=== PATIENT | female | born 1975 | race American Indian/Alaskan Native ===

== ENCOUNTER 2016-11-05 09:59 | Outpatient (CLI) | payer OTHER ==
--- NOTE | 2016-11-05 11:43 | Mammography Report ---
Bilateral mammogram: No previous studies available. CAD study utilized. Findings: Predominance adipose tissue bilaterally. Benign calcifications. No mass. Normal axilla. Impression: Benign findings. Annual followup recommended. BI-RADS CATEGORY: 2 = Benign ACR BI-RADS MAMMOGRAPHIC CODES: 0 = Needs additional imaging evaluation; 1 = Negative; 2 = Benign; 3 = Probably benign; 4 = Suspicious; 5 = Malignant; 6 = Known biopsy-proven malignancy COMMENT: 1. Dense breast tissue, i.e., adenosis, fibrocystic changes, etc., may obscure an underlying neoplasm. 2. Approximately 10% of cancers are not detected with mammography. 3. A negative mammography report should not delay biopsy if a clinically suspicious mass is present. COMMENT: Patient follow-up letters are generated in [facility].
== END 2016-11-05 10:00 | disposition home or self-care (01) ==
LOC: MAMMO 09:59
PROVIDERS: ATTEND Obstetrics & Gynecology
DX: Z12.31 Encounter for screening mammogram for malignant neoplasm of breast (principal)
CPT/HCPCS: 77067; G0202

== ENCOUNTER 2017-03-04 14:50 | Inpatient (IN) | payer OTHER ==
[2017-03-04 19:22] LABS: Basophils % (Auto) 0.7 % (0.0-1.8); Hematocrit 38.8 % (30.3-42.9); Hemoglobin 12.8 gm/dl (10.1-14.3); Mean Corpuscular HGB Conc 33 % (30-34); Mean Corpuscular Volume 74 fl (79-97); Platelet Count 294 K/mm3 (140-440); Red Blood Count 5.26 M/mm3 (3.65-5.03)
[2017-03-04 19:25] LABS: Mean Corpuscular Hemoglobin 24 pg (28-32)
[2017-03-04 19:34] LABS: INR 0.87 (0.87-1.13)
[2017-03-04 19:35] LABS: Partial Thromboplastin Time 27.7 Sec. (24.2-36.6)
[2017-03-04 19:40] LABS: Albumin 3.7 g/dL (3.9-5); Albumin/Globulin Ratio 0.8 %; Bilirubin,Total 0.5 mg/dL (0.1-1.2); Calcium 8.9 mg/dL (8.4-10.2); Chloride 98.5 mmol/L (98-107); Potassium 3.6 mmol/L (3.6-5.0); Total Protein 8.3 g/dL (6.3-8.2)
[2017-03-04 20:42] LABS: Bacteria,Urine 1+ /HPF (Negative); Bilirubin,Urine NEG (Negative); Blood,Urine LG (Negative); Ketones,Urine NEG (Negative); Leukocyte Esterase,Urine NEG (Negative); Nitrite,Urine NEG (Negative); Urobilinogen,Urine < 2.0 mg/dL (<2.0)
[2017-03-04] MEDS ORDERED: APRESOLINE IV ONE (21:04)
--- NOTE | 2017-03-04 21:07 | Emergency Department Report ---
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 Guerrier, with the complaint of very elevated blood pressure. The patient does have a history of hypertension and takes hydralazine 50 mg daily and Catapres 0.2 mg daily, as well as some Lasix for history of heart failure. She says she has been compliant with these medications but was found to have a very elevated blood pressure in the office. She was given 0.2 mg of clonidine at the office prior to coming in. Secondarily she also complains of very heavy menstrual cycle/ vaginal bleeding. She says that since June 2014, her menstrual cycle appears to last about 25 days. She denies any abdominal pain, chest pain or shortness of breath, back pain, nausea, vomiting, fever. ED Past Medical Hx - Past Medical History Previous Medical History?: Yes Hx Hypertension: Yes Hx Congestive Heart Failure: Yes Additional medical history: abnormal vaginal bleeding - Surgical History Past Surgical History?: No - Social History Smoking Status: Never Smoker Substance Use Type: Prescribed - Medications Home Medications: Home Medications Medication Instructions Recorded Confirmed Last Taken Type Furosemide [Lasix TAB] 20 mg PO QDAY #30 tablet 02/17/14 03/04/17 03/03/17 Rx Hydralazine HCl 50 mg PO DAILY 03/04/17 03/04/17 03/03/17 History cloNIDine [Catapres] 0.2 mg PO QHS 03/04/17 03/04/17 03/04/17 History ED Review of Systems ROS: Stated complaint: HIGH BLOOD PRESSURE, VAGINAL BLEEDING Other details as noted in HPI Comment: All other systems reviewed and negative Constitutional: denies: chills, fever Eyes: denies: eye pain, eye discharge, vision change ENT: denies: ear pain, throat pain Respiratory: denies: cough, shortness of breath, wheezing Cardiovascular: denies: chest pain, palpitations Gastrointestinal: denies: abdominal pain, nausea, diarrhea Genitourinary: abnormal menses. denies: urgency, dysuria, discharge Musculoskeletal: denies: back pain, joint swelling, arthralgia Skin: denies: rash, lesions Neurological: denies: headache, weakness, paresthesias Physical Exam - Physical Exam Vital Signs: Vital Signs 03/04/17 03/04/17 03/04/17 17:19 18:29 19:00 Temperature 98.8 F 98 F 97.9 F Pulse Rate 91 H 83 76 Respiratory 20 20 15 Rate Blood Pressure 224/142 Blood Pressure 202/127 210/119 [Left] O2 Sat by Pulse 100 100 98 Oximetry 03/04/17 20:45 Temperature Pulse Rate 78 Respiratory 14 Rate Blood Pressure 215/129 Blood Pressure [Left] O2 Sat by Pulse 99 Oximetry Physical Exam: GENERAL: The patient is well-developed well-nourished. HENT: Normocephalic. Atraumatic. Patient has moist mucous membranes. EYES: Extraocular motions are intact. Pupils equal reactive to light bilaterally. NECK: Supple. Trachea is midline. CHEST/LUNGS: Clear to auscultation. There is no respiratory distress noted. HEART/CARDIOVASCULAR: Regular. There is no tachycardia. There is no gallop rub or murmur. ABDOMEN: Abdomen is soft, nontender. Patient has normal bowel sounds. There is no abdominal distention. SKIN: Skin is warm and dry. NEURO: The patient is awake, alert, and oriented. The patient is cooperative. The patient has no focal neurologic deficits. The patient has normal speech and gait. MUSCULOSKELETAL: There is no tenderness or deformity. There is no limitation range of motion. There is no evidence of acute injury. ED Course Vital Signs 03/04/17 03/04/17 03/04/17 17:19 18:29 19:00 Temperature 98.8 F 98 F 97.9 F Pulse Rate 91 H 83 76 Respiratory 20 20 15 Rate Blood Pressure 224/142 Blood Pressure 202/127 210/119 [Left] O2 Sat by Pulse 100 100 98 Oximetry 03/04/17 20:45 Temperature Pulse Rate 78 Respiratory 14 Rate Blood Pressure 215/129 Blood Pressure [Left] O2 Sat by Pulse 99 Oximetry - Consultations Consultation #1: I spoke with Dr. Jorge, [facility] heart cardiology, and she says that the patient was most likely secondary to as they were having trouble controlling the blood pressure in the outpatient setting and therefore she recommends inpatient admission and they're happy to consult. 03/05/17 02:39 ED Medical Decision Making - Lab Data Result diagrams: 03/04/17 18:55 03/04/17 18:55 - EKG Data -: EKG Interpreted by [facility] EKG shows normal: sinus rhythm, axis, intervals (prolonged QT and QTC intervals) , QRS complexes (LVH), ST-T waves (T-wave inversions to the lateral leads) - EKG Data When compared to previous EKG there are: changes noted (T-wave inversions to the lateral leads) Interpretation: other (sinus rhythm, normal axis, normal rate, prolonged QT and QTC intervals, LVH, T-wave inversions to the lateral leads) - Radiology Data Radiology results: report reviewed EXAM: US PELVIS DUPLEX DOPPLER COMP HISTORY: abnormal vaginal bleeding . Irregular cycles. LMP is unknown and has been continuous since the end of January. TECHNIQUE: Ultrasound of the pelvis using transabdominal imaging PRIORS: None. FINDINGS: Uterus: Uterus is enlarged in size and normal and homogeneous in echogenicity without focal fibroid formation. The uterus measures 9.4 x 5.0 x 5.7 cm in size. Endometrial stripe: Abnormal in thickness measuring 19.7 mm. Endometrium is heterogeneous in echogenicity and extends into and through the internal cervical os. Ovaries: Both ovaries appear normal in echogenicity with normal blood flow bilaterally. The right ovary is enlarged in size. The right ovary measures 7.1 x 5.1 x 6.0 cm and the left ovary measures 3.2 x 2.1 x 1.5 cm in size. There is a large anechoic cyst in the right ovary measuring 4.9 x 4.9 x 5.7 cm. Given the size of this finding, this should be followed with ultrasound in 6-12 months. Other: There is no evidence for solid adnexal mass or free fluid in the cul-de-sac seen. IMPRESSION: 1. abnormally thickened heterogeneous endometrium extending into and through the internal cervical os. Findings may be consistent with endometrial hyperplasia or neoplasm. 2. Large cyst in the right ovary. This should be followed with ultrasound 6-12 months. Transcribed By: [facility] Dictated By: MAREK FORD MD Electronically Authenticated By: MAREK FORD MD Signed Date/Time: 03/04/17 980 - Medical Decision Making 41-year-old female sent in by cardiology for hypertensive issues. She received Catapres they are, hydralazine and Vasotec here and she still has some elevated blood pressure. It is asymptomatic hypertensive crisis. Secondarily she complains of heavy vaginal bleeding. The patient is not . Ultrasound was done that shows thickened endometrium that even goes down towards the cervical os that is concerning for endometrial hyperplasia versus malignancy. Also shows a large right-sided ovarian cyst. This all can be followed outpatient with [facility] but the patient will be admitted to the hospital for cardio consultation and blood pressure control. The patient understands and agrees the plan. The patient has been accepted for admission by the hospitalist , Dr. Quesada. - Differential Diagnosis , dysfunctional uterine bleeding, malignancy, hypertensive crisis Critical Care Time: No Critical care attestation.: If time is entered above; I have spent that time in minutes in the direct care of this critically ill patient, excluding procedure time. ED Disposition Clinical Impression: Asymptomatic hypertensive urgency Disposition: OP ADMIT IP TO THIS HOSP Is pt being admited?: Yes Condition: Stable Referrals: PRIMARY CARE, [Primary Care Provider] - 3-5 Days Time of Disposition: 02:48
--- NOTE | 2017-03-04 22:53 | Ultrasound Report ---
FINAL REPORT EXAM: US PELVIS DUPLEX DOPPLER COMP HISTORY: abnormal vaginal bleeding . Irregular cycles. LMP is unknown and has been continuous since the end of January. TECHNIQUE: Ultrasound of the pelvis using transabdominal imaging PRIORS: None. FINDINGS: Uterus: Uterus is enlarged in size and normal and homogeneous in echogenicity without focal fibroid formation. The uterus measures 9.4 x 5.0 x 5.7 cm in size. Endometrial stripe: Abnormal in thickness measuring 19.7 mm. Endometrium is heterogeneous in echogenicity and extends into and through the internal cervical os. Ovaries: Both ovaries appear normal in echogenicity with normal blood flow bilaterally. The right ovary is enlarged in size. The right ovary measures 7.1 x 5.1 x 6.0 cm and the left ovary measures 3.2 x 2.1 x 1.5 cm in size. There is a large anechoic cyst in the right ovary measuring 4.9 x 4.9 x 5.7 cm. Given the size of this finding, this should be followed with ultrasound in 6-12 months. Other: There is no evidence for solid adnexal mass or free fluid in the cul-de-sac seen. IMPRESSION: 1. abnormally thickened heterogeneous endometrium extending into and through the internal cervical os. Findings may be consistent with endometrial hyperplasia or neoplasm. 2. Large cyst in the right ovary. This should be followed with ultrasound 6-12 months.
[2017-03-04] MEDS ORDERED: VASOTEC IV ONE (23:50)
[2017-03-05] MEDS ORDERED: MILK OF MAGNESIA PO PRN (03:42)
[2017-03-05] MEDS ORDERED: ZOFRAN IV PRN (03:42)
[2017-03-05] MEDS ORDERED: DULCOLAX PR PRN (03:42)
[2017-03-05] MEDS ORDERED: TYLENOL PO PRN (03:42)
[2017-03-05] MEDS ORDERED: PERCOCET 5/325 PO PRN (03:42)
--- NOTE | 2017-03-05 04:37 | History and Physical Report ---
History of Present Illness Date of examination: 03/05/17 Date of admission: 03/05/17 03:42 History of present illness: 41-year-old woman history of hypertension, very difficult to control, CHF was sent to the emergency room by business services specialist sales because her blood pressure was extremely high, systolic greater than 220. She had an appointment with her business services specialist sales to check on the stress test results today. Patient stated that her medications have been changed several times, she takes her clonidine and her other antihypertensive at night so she could function during the day. She does not check her blood pressure in the morning. This is her fifth hospitalization for uncontrolled hypertension. Admit the menstrual irregularities Review Of Systems: Constitutional: no weight loss Ears, eyes, nose, mouth and throat: no nasal congestion, no nasal discharge, no sinus pressure, blurry vision, diplopia Neck: No neck pain or rigidity. Cardiovascular: chest pain, orthopnea, palpitations Respiratory: No shortness of breath, cough Gastrointestinal: abdominal pain, hematochezia Genitourinary : no dysuria, frequency , hematuria Musculoskeletal: no muscle ache Integumentary: no rash, no pruritis Neurological: no parathesias, focal weakness Endocrine: no cold or heat intolerance, no polyuria or polydipsia Hematologic/Lymphatic: no easy bruising, no easy bleeding, no gland swelling Allergic/Immunologic: no urticaria, no angioedema. PAST MEDICAL HISTORY: Hypertension, CHF PAST SURGICAL HISTORY: None FAILY HISTORY: Hypertension SOCIAL HISTORY:Denies alcohol, tobacco, drugs Medications and Allergies Allergies Allergy/AdvReac Type Severity Reaction Status Date / Time carvedilol Allergy Seizure Unverified 11/05/16 10:00 nitroglycerin Allergy Headache Unverified 11/05/16 09:59 Home Medications Medication Instructions Recorded Confirmed Last Taken Type Furosemide [Lasix TAB] 20 mg PO QDAY #30 tablet 02/17/14 03/04/17 03/03/17 Rx Hydralazine HCl 50 mg PO DAILY 03/04/17 03/04/17 03/03/17 History cloNIDine [Catapres] 0.2 mg PO QHS 03/04/17 03/04/17 03/04/17 History Active Meds: Active Medications Acetaminophen (Tylenol) 650 mg PO Q4H PRN PRN Reason: Pain MILD(1-3)/Fever >100.5/MONTANEZ Bisacodyl (Dulcolax) 10 mg [place] QDAY PRN PRN Reason: Constipation unrelieved by MOM Enoxaparin Sodium (Lovenox) 40 mg SUB-Q QDAY@1000 CJ Magnesium Hydroxide (Milk Of Magnesia) 30 ml PO Q4H PRN PRN Reason: Constipation Ondansetron HCl (Zofran) 4 mg IV Q8H PRN PRN Reason: N/V unrelieved by Reglan Oxycodone/Acetaminophen (Percocet 5/325) 1 tab PO Q6H PRN PRN Reason: Pain, Moderate (4-6) Exam - Physical Exam Narrative exam: Gen. appearance: Patient lying in bed in no acute distress HEENT: Normocephalic/atraumatic, pupils equal round reactive to light, extra alkaline movement intact, no scleral icterus, no JVD or thyromegaly or nodule, neck is supple, mucous membrane moist, no erythema or exudate Heart: S1-S2, regular rate and rhythm Lungs: Clear to auscultation bilateral breathing comfortable Abdomen: Positive bowel sounds, nontender, nondistended, no organomegaly Extremities: No edema, cyanosis, clubbing Neuro:: Oriented 3 , cranial nerves II-12 intact, speech, motor intact Skin: No rash, nodules, warm dry - Constitutional Vitals: Temp Pulse Resp BP Pulse Ox 97.9 F 83 15 171/105 95 03/04/17 19:00 03/05/17 03:00 03/05/17 03:00 03/05/17 03:00 03/05/17 03:00 Results - Labs CBC & Chem 7: 03/04/17 18:55 03/04/17 18:55 - Imaging and Cardiology EKG: image reviewed Assessment and Plan Abdominal and transvaginal ultrasound reviewed Assessment Hypertensive urgency, ligament CHF, stable Dysfunctional uterine bleed Plan Admit to medicine Continue appropriate outpatient medications, consult cardiology DVT prophylaxis
[2017-03-05] MEDS ORDERED: APRESOLINE IV ONE ×2 (06:15→06:30)
--- NOTE | 2017-03-05 07:35 | Ultrasound Report ---
FINAL REPORT EXAM: US TRANSVAGINAL HISTORY: abnormal vaginal bleeding TECHNIQUE: Transvaginal imaging was obtained the pelvis including Doppler interrogation of the ovaries. FINDINGS: The uterus is anteverted measuring 9.4 cm x 5 cm x 5.7 cm. The endometrium is thickened measuring 19.7 millimeters. The echotexture of the endometrium is slightly heterogeneous extending into the cervix. Free fluid is not seen. The left ovary is normal size contour and echotexture measuring 3.2 cm x 2.1 cm x 1.5 cm. The right ovary is enlarged measuring 7.1 cm x 5.1 cm x 6 cm. There are 3 cysts in the right ovary the largest measuring up to 6.7 cm in diameter. The other 2 cysts measure up to 1.9 cm and up to 2.5 cm in diameter. IMPRESSION: Abnormally thickened heterogeneous endometrium as described. Underlying endometrial hyperplasia or neoplasm cannot be excluded. Cystic changes in the right ovary the largest measuring up to 6.7 cm in diameter. Follow-up exam recommended
[2017-03-05] MEDS ORDERED: APRESOLINE PO SCH ×2 (09:00→10:00)
[2017-03-05] MEDS ORDERED: LASIX PO SCH (10:00)
[2017-03-05] MEDS: LOVENOX SUB-Q SCH (10:44)
--- NOTE | 2017-03-05 11:54 | Consultation ---
History of Present Illness Consult date: 03/05/17 Requesting physician: STEPHEN HAGER Consult reason: hypertension History of present illness: She was diagnosed with hypertension in 2013. She claims that her blood pressure has been uncontrolled for the past [address] Jay yesterday to review her recent stress test and echo performed at the office and was noted to have severely elevated BP. She was then sent to the hospital for further management. She denies headache, nausea, vomiting, dyspnea or dizziness. She claims that when she takes hydralazine, she experiences chest discomfort. She also mentioned that for the past 2 weeks, she has been experiencing excessive uterine bleeding. Transvaginal ultrasound raised a question of possible endometrial hyperplasia. Stress test with nuclear imaging was negative for ischemia on 02/25/2017. Echocardiogram revealed mild to moderate LVH with an ejection fraction of 50%. There is grade 1 diastolic LV dysfunction. Past History Past Medical History: hypertension Past Surgical History: No surgical history Social history: . denies: smoking, alcohol abuse Family history: no significant family history Medications and Allergies Allergies Allergy/AdvReac Type Severity Reaction Status Date / Time carvedilol Allergy Seizure Unverified 11/05/16 10:00 nitroglycerin Allergy Headache Unverified 11/05/16 09:59 Home Medications Medication Instructions Recorded Confirmed Last Taken Type Furosemide [Lasix TAB] 20 mg PO QDAY #30 tablet 02/17/14 03/04/17 03/03/17 Rx Hydralazine HCl 50 mg PO DAILY 03/04/17 03/04/17 03/03/17 History cloNIDine [Catapres] 0.2 mg PO QHS 03/04/17 03/04/17 03/04/17 History Active Meds: Active Medications Acetaminophen (Tylenol) 650 mg PO Q4H PRN PRN Reason: Pain MILD(1-3)/Fever >100.5/MONTANEZ Bisacodyl (Dulcolax) 10 mg [place] QDAY PRN PRN Reason: Constipation unrelieved by MOM Clonidine HCl (Catapres) 0.2 mg PO QHS CJ Enoxaparin Sodium (Lovenox) 40 mg SUB-Q QDAY@1000 CJ Last Admin: 03/05/17 10:44 Dose: Not Given Furosemide (Lasix) 20 mg PO QDAY [facility] Last Admin: 03/05/17 10:42 Dose: 20 mg Hydralazine HCl (Apresoline) 100 mg PO TID CJ Last Admin: 03/05/17 10:40 Dose: 100 mg Magnesium Hydroxide (Milk Of Magnesia) 30 ml PO Q4H PRN PRN Reason: Constipation Ondansetron HCl (Zofran) 4 mg IV Q8H PRN PRN Reason: N/V unrelieved by Reglan Oxycodone/Acetaminophen (Percocet 5/325) 1 tab PO Q6H PRN PRN Reason: Pain, Moderate (4-6) Review of Systems Constitutional: no fever, no chills Ears, nose, mouth and throat: no ear pain, no ear discharge, no sore throat Cardiovascular: no chest pain, no palpitations, no lightheadedness, no shortness of breath Respiratory: no cough, no hemoptysis, no shortness of breath, no dyspnea on exertion Gastrointestinal: no abdominal pain, no nausea, no vomiting, no diarrhea, no constipation Genitourinary Female: menorrhagia, no dysuria, no urinary frequency Rectal: no pain, no bleeding Musculoskeletal: no neck stiffness, no neck pain, no myalgias Integumentary: no rash, no pruritis Neurological: no weakness, no parathesias, no headaches Endocrine: no cold intolerance, no heat intolerance Hematologic/Lymphatic: no easy bruising, no easy bleeding Allergic/Immunologic: no urticaria, no wheezing Physical Examination Vital Signs Vital Signs 03/05/17 03/05/17 03/05/17 04:11 04:30 04:41 Temperature Pulse Rate 86 81 86 Respiratory 15 12 13 Rate Blood Pressure 172/99 178/108 178/108 O2 Sat by Pulse 99 99 99 Oximetry 03/05/17 03/05/17 03/05/17 04:51 05:00 05:48 Temperature 97.8 F Pulse Rate 89 89 85 Respiratory 13 13 20 Rate Blood Pressure 178/108 178/119 193/116 O2 Sat by Pulse 98 99 98 Oximetry 03/05/17 03/05/17 03/05/17 07:30 08:38 08:51 Temperature 98.6 F Pulse Rate 92 H 92 H Respiratory 20 Rate Blood Pressure 188/100 149/92 O2 Sat by Pulse 98 99 Oximetry 03/05/17 10:40 Temperature Pulse Rate 96 H Respiratory Rate Blood Pressure 149/92 O2 Sat by Pulse Oximetry General appearance: no acute distress HEENT: Positive: EOMI, Normocephaly, Mucus Membranes Moist Neck: Positive: neck supple, trachea midline Cardiac: Positive: Reg Rate and Rhythm, S1/S2 Lungs: Positive: clear to auscultation Neuro: Positive: Grossly Intact Abdomen: Positive: Soft, Active Bowel Sounds. Negative: Tender Musculoskeletal: Normal Range of Motion Extremities: Present: normal. Absent: edema Results 03/04/17 18:55 03/04/17 18:55 - Imaging and Cardiology EKG: image reviewed EKG interpretations - Telemetry EKG Rhythm: Sinus Rhythm - EKG Sinus rhythms and dysrhythmias: sinus rhythm Chamber hypertrophy or enlargement: left ventricular hypertro Repolarization changes or abnormalities: repolarization abn secondary to ventricular hypertrophy Assessment and Plan I will optimize her antihypertensive regimen. - Patient Problems (1) Accelerated hypertension Current Visit: No Status: Acute (2) Hypertensive heart disease Current Visit: Yes Status: Chronic Qualifiers: Heart failure presence: without heart failure Qualified Code(s): I11.9 - Hypertensive heart disease without heart failure (3) Chronic kidney disease (CKD) Current Visit: Yes Status: Chronic Qualifiers: Chronic kidney disease stage: stage 2 (mild) Qualified Code(s): N18.2 - Chronic kidney disease, stage 2 (mild) (4) Menorrhagia Current Visit: Yes Status: Acute Qualifiers: Menorrahagia type: M
[2017-03-05] MEDS: NORVASC PO SCH (13:02)
[2017-03-05] MEDS: LOPRESSOR PO SCH ×2 (13:16→22:17)
[2017-03-05] MEDS: DIOVAN PO SCH (13:18)
--- NOTE | 2017-03-05 17:05 | Progress Note ---
Assessment and Plan Assessment and plan: Hypertensive emergency - Patient's systolic blood pressure on admission was 220 with ANSELMO - Patient started with the pressure medications, and currently controlled - Patient said she is allergic to most of the blood pressure medications ANSELMO - Control blood pressure and monitor CHF, chronic diastolic - Stable, continue the Lasix - Ejection fraction was 30-35% on her previous echo but per cardiology her recent ejection fraction is 50-55% with diastolic dysfunction DVT prophylaxis - On heparin Disposition - Will be discharged tomorrow if blood pressure is controlled History Interval history: Patient was seen and evaluated this morning, no chest pain or shortness of breath, patient has menometrorrhagia Hospitalist Physical - Physical exam Narrative exam: Not in cardiopulmonary distress. The patient appeared well nourished and normally developed. Vital signs as documented. Head exam is unremarkable. No scleral icterus . Neck is without jugular venous distension, thyromegaly, or carotid bruits. Lungs are clear to auscultation. Cardiac exam reveals regular rate and Rhythm. First and second heart sounds normal. No murmurs, rubs or gallops. Abdominal exam reveals normal bowel sounds, no masses, no organomegaly and no aortic enlargement. Extremities are nonedematous and both femoral and pedal pulses are normal. EDGE BANDER HAND: Alert and oriented 3. No focal weakness. - Constitutional Vitals: Temp Pulse Resp BP Pulse Ox 98.2 F 74 20 151/93 99 03/05/17 15:46 03/05/17 15:46 03/05/17 15:46 03/05/17 15:46 03/05/17 15:46 General appearance: Present: no acute distress Results - Labs CBC & Chem 7: 03/04/17 18:55 03/04/17 18:55 Labs: Laboratory Last Values WBC 10.0 K/mm3 (4.5-11.0) 03/04/17 18:55 RBC 5.26 M/mm3 (3.65-5.03) H 03/04/17 18:55 Hgb 12.8 gm/dl (10.1-14.3) 03/04/17 18:55 Hct 38.8 % (30.3-42.9) 03/04/17 18:55 MCV 74 fl (79-97) L 03/04/17 18:55 MCH 24 pg (28-32) L 03/04/17 18:55 MCHC 33 % (30-34) 03/04/17 18:55 RDW 19.0 % (13.2-15.2) H 03/04/17 18:55 Plt Count 294 K/mm3 (140-440) 03/04/17 18:55 Lymph % (Auto) 16.6 % (13.4-35.0) 03/04/17 18:55 [place] % (Auto) 7.0 % (0.0-7.3) 03/04/17 18:55 Eos % (Auto) 2.0 % (0.0-4.3) 03/04/17 18:55 Baso % (Auto) 0.7 % (0.0-1.8) 03/04/17 18:55 Lymph # 1.7 K/mm3 (1.2-5.4) 03/04/17 18:55 [place] # 0.7 K/mm3 (0.0-0.8) 03/04/17 18:55 Eos # 0.2 K/mm3 (0.0-0.4) 03/04/17 18:55 Baso # 0.1 K/mm3 (0.0-0.1) 03/04/17 18:55 Seg Neutrophils % 73.7 % (40.0-70.0) H 03/04/17 18:55 Seg Neutrophils # 7.4 K/mm3 (1.8-7.7) 03/04/17 18:55 PT 12.3 Sec. (12.2-14.9) 03/04/17 18:55 INR 0.87 (0.87-1.13) 03/04/17 18:55 APTT 27.7 Sec. (24.2-36.6) 03/04/17 18:55 Sodium 137 mmol/L (137-145) 03/04/17 18:55 Potassium 3.6 mmol/L (3.6-5.0) 03/04/17 18:55 Chloride 98.5 mmol/L (98-107) 03/04/17 18:55 Carbon Dioxide 23 mmol/L (22-30) 03/04/17 18:55 Anion Gap 19 mmol/L 03/04/17 18:55 BUN 14 mg/dL (7-17) 03/04/17 18:55 Creatinine 1.5 mg/dL (0.7-1.2) H 03/04/17 18:55 Estimated GFR 46 ml/min 03/04/17 18:55 BUN/Creatinine Ratio 9 % 03/04/17 18:55 Glucose 71 mg/dL (65-100) 03/04/17 18:55 Hemoglobin A1c 5.3 % (4-6) 03/04/17 14:30 Calcium 8.9 mg/dL (8.4-10.2) 03/04/17 18:55 Total Bilirubin 0.50 mg/dL (0.1-1.2) 03/04/17 18:55 AST 16 units/L (5-40) 03/04/17 18:55 ALT 12 units/L (7-56) 03/04/17 18:55 Alkaline Phosphatase 104 units/L (35-129) 03/04/17 18:55 Total Protein 8.3 g/dL (6.3-8.2) H 03/04/17 18:55 Albumin 3.7 g/dL (3.9-5) L 03/04/17 18:55 Albumin/Globulin Ratio 0.8 % 03/04/17 18:55 HCG, Quant < 2 mIU/mL (0-4) 03/04/17 18:55 Urine Color Yellow (Yellow) 03/04/17 20:32 Urine Turbidity Clear (Clear) 03/04/17 20:32 Urine pH 6.0 (5.0-7.0) 03/04/17 20:32 Ur Specific [place] 1.008 (1.003-1.030) 03/04/17 20:32 Urine Protein 30 mg/dl mg/dL (Negative) 03/04/17 20:32 Urine Glucose (UA) Neg mg/dL (Negative) 03/04/17 20:32 Urine Ketones Neg mg/dL (Negative) 03/04/17 20:32 Urine Blood Lg (Negative) 03/04/17 20:32 Urine Nitrite Neg (Negative) 03/04/17 20:32 Urine Bilirubin Neg (Negative) 03/04/17 20:32 Urine Urobilinogen < 2.0 mg/dL (<2.0) 03/04/17 20:32 Ur Leukocyte Esterase Neg (Negative) 03/04/17 20:32 Urine WBC (Auto) 2.0 /HPF (0.0-6.0) 03/04/17 20:32 Urine RBC (Auto) 148.0 /HPF (0.0-6.0) 03/04/17 20:32 U Epithel Cells (Auto) < 1.0 /HPF (0-13.0) 03/04/17 20:32 Urine Bacteria (Auto) 1+ /HPF (Negative) 03/04/17 20:32 Blood Type O POSITIVE 03/04/17 19:00 Antibody Screen Negative 03/04/17 19:00
[2017-03-05] MEDS ORDERED: CATAPRES PO SCH (22:00)
[2017-03-06 10:18] LABS: Basophils % (Auto) 0.9 % (0.0-1.8); Eosinophils % (Auto) 1.8 % (0.0-4.3); Hematocrit 33.3 % (30.3-42.9); Hemoglobin 10.7 gm/dl (10.1-14.3); Mean Corpuscular HGB Conc 32 % (30-34); Mean Corpuscular Volume 74 fl (79-97); Platelet Count 311 K/mm3 (140-440); Red Blood Count 4.49 M/mm3 (3.65-5.03); Red Cell Distribution Width 18.8 % (13.2-15.2); White Blood Count 9.7 K/mm3 (4.5-11.0)
[2017-03-06 10:24] LABS: Mean Corpuscular Hemoglobin 24 pg (28-32)
[2017-03-06 10:25] LABS: Calcium 8.4 mg/dL (8.4-10.2); Chloride 102.7 mmol/L (98-107); Potassium 4.2 mmol/L (3.6-5.0)
--- NOTE | 2017-03-06 10:31 | Discharge Summary ---
Providers - Providers Date of Admission: 03/05/17 03:42 Date of discharge: 03/06/17 Attending physician: MARY GUARDADO MD Primary care physician: SALES FORCE ADMINISTRATOR Hospitalization Reason for admission: Hypertensive urgency Condition: Stable Hospital course: 41-year-old woman history of hypertension, very difficult to control, CHF was sent to the emergency room by project manager retail because her blood pressure was extremely high, systolic greater than 220. She had an appointment with her project manager retail to check on the stress test results today. Patient stated that her medications have been changed several times, she takes her clonidine and her other antihypertensive at night so she could function during the day. She does not check her blood pressure in the morning. This is her fifth hospitalization for uncontrolled hypertension. Admit the menstrual irregularities. Patient was admitted to the floor with the impression of hypertensive urgency and we tried to manage her blood pressure the patient is difficult to manage. She mentioned side effects to all the common medications I mentioned and refused to take the medications. I have consulted cardiology and she was also mentioning the different side effects to different medications and they modify her medications and advised to discharge her. Her blood pressure was high at the time of discharge but the patient was not willing to take any medications. Patient said her BP is high when she is in period and asked me if that is the case and I told her to follow with he FAILURE ANALYSIS TECHNICIAN and don't believe it is related to her menses. Patient was alert and oriented and looks rational reasoning and don't believe needs psych evaluation on this admission. Per the H/ P she has been admitted 5 times for the same problem. If the patient is refusing all kinds of BP medications I didn't see the rationale of admitting this patient. I gave a script the medications recommended by cardiology and not sure if she is going to fill the scripts. patient didn't have any symptoms other than the high blood pressure. Patient is known to [facility]. Disposition: DC-01 TO HOME OR SELFCARE Time spent for discharge: 31 minutes - Discharge Diagnoses (1) Asymptomatic hypertensive urgency Status: Acute (2) Menorrhagia Status: Acute Qualifiers: Menorrahagia type: M (3) Chronic kidney disease (CKD) Status: Chronic Qualifiers: Chronic kidney disease stage: stage 2 (mild) Qualified Code(s): N18.2 - Chronic kidney disease, stage 2 (mild) (4) CHF (congestive heart failure) Status: Acute Qualifiers: Congestive heart failure type: C Congestive heart failure chronicity: C Core Measure Documentation - Palliative Care Palliative Care/ Comfort Measures: Not Applicable - Core Measures Any of the following diagnoses?: none Exam - Physical Exam Narrative exam: Not in cardiopulmonary distress. The patient appeared well nourished and normally developed. Vital signs as documented. Head exam is unremarkable. No scleral icterus . Neck is without jugular venous distension, thyromegaly, or carotid bruits. Lungs are clear to auscultation. Cardiac exam reveals regular rate and Rhythm. First and second heart sounds normal. No murmurs, rubs or gallops. Abdominal exam reveals normal bowel sounds, no masses, no organomegaly and no aortic enlargement. Extremities are nonedematous and both femoral and pedal pulses are normal. INSULATION FOREMAN: Alert and oriented 3. No focal weakness. - Constitutional Vitals: Temp Pulse Resp BP Pulse Ox 98.7 F 68 18 180/99 97 03/06/17 08:27 03/06/17 08:27 03/06/17 08:27 03/06/17 08:27 03/06/17 08:27 Plan Activity: no restrictions Weight Bearing Status: Full Weight Bearing Diet: low cholesterol, low salt Follow up with: PRIMARY CARE, [Primary Care Provider] - 3-5 Days Prescriptions: cloNIDine [Catapres] 0.2 mg PO QHS #30 tablet Furosemide [Lasix TAB] 20 mg PO QDAY #30 tablet Hydralazine HCl 50 mg PO DAILY #30 tablet Metoprolol [Lopressor TAB] 50 mg PO BID #60 tablet Valsartan [Diovan] 320 mg PO QDAY #30 tablet
[2017-03-06] MEDS: DIOVAN PO SCH (10:34)
[2017-03-06] MEDS: LOPRESSOR PO SCH (10:36)
[2017-03-06] MEDS: LOVENOX SUB-Q SCH (10:37)
[2017-03-06] MEDS: NORVASC PO SCH (10:38)
--- NOTE | 2017-03-06 11:25 | Progress Note ---
Assessment and Plan Cont with lopressor and valsartan. Currently stable cardiac status. Pt may discharge home from cardiology standpoint. Follow up in our office with Dr. Castañeda within 1 week of hospital discharge ). The patient has been seen in conjunction with Dr. Dacosta who agrees with the assessment and plan of care. - Patient Problems (1) Accelerated hypertension Current Visit: No Status: Acute (2) Hypertensive heart disease Current Visit: Yes Status: Chronic Qualifiers: Heart failure presence: without heart failure Qualified Code(s): I11.9 - Hypertensive heart disease without heart failure (3) Chronic kidney disease (CKD) Current Visit: Yes Status: Chronic Qualifiers: Chronic kidney disease stage: stage 2 (mild) Qualified Code(s): N18.2 - Chronic kidney disease, stage 2 (mild) (4) Menorrhagia Current Visit: Yes Status: Acute Qualifiers: Menorrahagia type: M Subjective Date of service: 03/06/17 Principal diagnosis: accelerated HTN Interval history: pt sitting comfortably at bedside, states she is feeling better. BPs remain labile. Pt refused amlodipine and valsartan overnight d/t reported history of allergic reaction to amlodipine and losartan. However, following discussion regarding anti-hypertensive medications, she is agreeable to try valsartan now. Objective Last Vital Signs Temp 98.7 F 03/06/17 08:27 Pulse 68 03/06/17 10:36 Resp 18 03/06/17 08:27 BP 180/99 03/06/17 10:36 Pulse Ox 96 03/06/17 10:00 - Physical Examination General: Appears Well HEENT: Positive: EOMI, Normocephaly, Mucus Membranes Moist Neck: Positive: neck supple, trachea midline Cardiac: Positive: Reg Rate and Rhythm, S1/S2 Lungs: Positive: clear to auscultation Neuro: Positive: Grossly Intact Abdomen: Positive: Soft, Active Bowel Sounds. Negative: Tender Musculoskeletal: Normal Range of Motion Extremities: Present: normal. Absent: edema - Labs and Meds CBC 03/06/17 Range/Units 09:48 WBC 9.7 (4.5-11.0) K/mm3 RBC 4.49 (3.65-5.03) M/mm3 Hgb 10.7 (10.1-14.3) gm/dl Hct 33.3 (30.3-42.9) % Plt Count 311 (140-440) K/mm3 Lymph # 1.4 (1.2-5.4) K/mm3 [place] # 0.7 (0.0-0.8) K/mm3 Eos # 0.2 (0.0-0.4) K/mm3 Baso # 0.1 (0.0-0.1) K/mm3 Comprehensive Metabolic Panel 03/06/17 Range/Units 09:48 Sodium 138 (137-145) mmol/L Potassium 4.2 (3.6-5.0) mmol/L Chloride 102.7 (98-107) mmol/L Carbon Dioxide 22 (22-30) mmol/L BUN 15 (7-17) mg/dL Creatinine 1.7 H (0.7-1.2) mg/dL Glucose 90 (65-100) mg/dL Calcium 8.4 (8.4-10.2) mg/dL - Imaging and Cardiology EKG: image reviewed - Telemetry EKG Rhythm: Sinus Rhythm - EKG Sinus rhythms and dysrhythmias: sinus rhythm Chamber hypertrophy or enlargement: left ventricular hypertro Repolarization changes or abnormalities: repolarization abn secondary to ventricular hypertrophy
--- NOTE | 2017-03-06 15:15 | Query- Renal Failure ---
Ori Meneses__Jolly Date:__03/06/2017 Specialties Operator/CDS:___Lynn Phone#:__[phone] Exercise your independent professional judgment when responding to query. Questions asked do not imply a particular answer is desired or expected. We greatly appreciate your clarification on this issue. Clinical Documentation States: 41 Year old female was admitted on 03/04/2017 because her blood pressure was extremely high, systolic greater than 220. The Hospitalist progress note on 03/05/2017 states "ANSELMO - Control blood pressure and monitor." Clinical Findings Show: 03/04 03/06 Creatinine 1.5 1.7 Please clarify if you mean: Acute Renal Failure with or due to: [ ] Tubular Necrosis [ ] Medullary Necrosis [ x] Vasomotor Nephropathy [ ] Shock Kidney [ ] Tubular Nephrosis [ ] Renal Tubular Stasis [ ] Cortical Necrosis [ ] Acute Renal Failure (unspecified) [ ] Lower Tubular Nephrosis [ ] Other: [ ] Not Applicable Present on Admission: [ x] Yes (Y) [ ] Clinically undeterminable (W) [ ] No (N) Please also document response in your Progress Notes and/or Discharge Summary and indicate if the condition was present on admission. MTDD
[2017-03-06 16:49] VITALS: BP 213/120
[2017-03-06] MEDS ORDERED: APRESOLINE IV ONE (17:08)
[2017-03-06] MEDS ORDERED: APRESOLINE PO ONE (17:46)
== END 2017-03-06 19:00 | disposition home or self-care (01) | DRG 304 ==
LOC: ED 14:50 → 3A 03-05 03:42
PROVIDERS: ADMIT Internal Medicine; ATTEND Internal Medicine
DX: I16.0 Hypertensive urgency (principal); N17.0 Acute kidney failure with tubular necrosis; I50.32 Chronic diastolic (congestive) heart failure; N93.8 Other specified abnormal uterine and vaginal bleeding; N85.00 Endometrial hyperplasia, unspecified; I13.0 Hypertensive heart and chronic kidney disease with heart failure and stage 1 through stage 4 chronic kidney disease, or unspecified chronic kidney disease; N18.9 Chronic kidney disease, unspecified; Z82.49 Family history of ischemic heart disease and other diseases of the circulatory system; Z88.8 Allergy status to other drugs, medicaments and biological substances
CPT/HCPCS: 36415; 76830; 80048; 80053; 81001; 83036; 84702; 85025; 85610; 85730; 86850; 86900; 86901; 93005; 93010; 93975; 96374; 96375; 99285; J0360; J1650; J2405

== ENCOUNTER 2017-11-25 14:57 | Emergency (ER) | payer OTHER ==
[2017-11-25 15:06] VITALS: BP 214/147
== END 2017-11-25 18:00 | disposition left against medical advice (07) ==
LOC: ED 14:57
DX: I10 Essential (primary) hypertension (principal); Z53.21 Procedure and treatment not carried out due to patient leaving prior to being seen by health care provider

== ENCOUNTER 2020-07-11 10:48 | Outpatient (CLI) | payer MEDICARE | END 2020-07-11 10:49 | disposition home or self-care (01) | LOC: ECHO 10:48 | PROVIDERS: ATTEND Internal Medicine | DX: I08.1 Rheumatic disorders of both mitral and tricuspid valves (principal); I42.0 Dilated cardiomyopathy; I50.9 Heart failure, unspecified; N18.6 End stage renal disease; I10 Essential (primary) hypertension; I27.20 Pulmonary hypertension, unspecified | CPT/HCPCS: 93306 ==

== ENCOUNTER 2020-08-15 06:26 | Day surgery (SDC) | payer MEDICARE ==
[2020-08-15] MEDS ORDERED: ASPIRIN EC 325 MG TAB PO ONE (07:01)
[2020-08-15 07:47] LABS: Basophils # (Auto) 0.1 K/mm3 (0.0-0.1); Basophils % (Auto) 0.9 % (0.0-1.8); Eosinophils # (Auto) 0.3 K/mm3 (0.0-0.4); Eosinophils % (Auto) 3.3 % (0.0-4.3); Hematocrit 33.9 % (30.3-42.9); Hemoglobin 11.3 gm/dl (10.1-14.3); Lymphocytes # (Auto) 1.5 K/mm3 (1.2-5.4); Lymphocytes % (Auto) 16.2 % (13.4-35.0); Mean Corpuscular HGB Conc 33 % (30-34); Mean Corpuscular Volume 89 fl (79-97); Monocytes # (Auto) 0.6 K/mm3 (0.0-0.8); Platelet Count 229 K/mm3 (140-440); Red Blood Count 3.82 M/mm3 (3.65-5.03); Red Cell Distribution Width 16.5 % (13.2-15.2)
[2020-08-15 07:54] LABS: INR 0.9 (0.87-1.13)
[2020-08-15 07:55] LABS: Partial Thromboplastin Time 23.2 Sec. (24.2-36.6)
[2020-08-15 07:56] LABS: Calcium 9.3 mg/dL (8.4-10.2)
[2020-08-15] MEDS ORDERED: SODIUM CHLORIDE 0.9% 500 ML 500 ML IV SCH (08:00)
[2020-08-15] MEDS ORDERED: HEPARIN/NS 5000 UNIT/500ML 1,000 ML IR ONE (08:15)
[2020-08-15] MEDS ORDERED: NITROGLYCERIN SYRINGE 3 ML ONE (08:16)
[2020-08-15] MEDS: LIDOCAINE (2%) 20 MG/1 ML VIAL 20 ML MDV INFILTRATI ONE ×2 (09:33→09:44)
[2020-08-15] MEDS: fentaNYL 100 MCG/2 ML INJ ONE ×2 (09:34→09:44)
[2020-08-15] MEDS: VERAPAMIL 5 MG/2 ML INJ ONE ×2 (09:35→09:46)
[2020-08-15] MEDS: HEPARIN 10,000 UNITS/10 ML VIAL ONE ×2 (09:35→09:46)
[2020-08-15] MEDS: MIDAZOLAM 2 MG/2 ML INJ ONE ×2 (09:35→09:44)
--- NOTE | 2020-08-15 11:08 | Cardiac Catherization Report ---
LEFT HEART CATHETERIZATION PRIMARY CARE PHYSICIAN: Dr. Farhad Montalvo. CLINICAL INFORMATION: This is a 45-year-old -[place] female with end-stage renal disease, on hemodialysis; hypertension, here for left heart catheterization prior to transplant and preoperative evaluation. Procedure was done with moderate sedation started 9:44 finished at 9:52, 8 minutes of moderate sedation. Procedure was done via the right radial artery, sterile technique, local anesthesia, 6-Argentine radial sheath inserted. Left system engaged with a JL3.5 catheter, left main is large and patent, bifurcates into large LAD with moderate tortuosity, patent. Diagonal 1 is medium caliber and patent. Circumflex is a large caliber vessel that is patent, bifurcates into medium to large caliber with moderate tortuosity. OM1 and OM2 are patent. RCA is a large dominant vessel is patent. PDA is medium caliber vessel, patent. LV gram done in PRISCILA and PELAEZ shows normal LV function, EF 55-60%, LVEDP 27 mmHg, LV is 146, aortic is 145/90 mmHg. No gradient across the aortic valve on pullback. 5-Argentine catheters all taken over guidewire, 6-Argentine radial sheath was discontinued. Radial band applied. No hematoma, no bleeding. SUMMARY: Left main patent, LAD large and patent, circumflex large patent. OM1 and OM2 large patent, RCA large, dominant, patent, normal coronaries, normal LV function. The patient has no cardiac contraindication for renal transplant. [facility]# [id number] CLAUDIA/CHETAN
--- NOTE | 2020-08-15 11:24 | Short Stay Summary ---
Short Stay Documentation Date of service: 08/15/20 - History H&P: obtained from office - Allergies and Medications Current Medications: Allergies carvedilol Allergy (Verified 08/15/20 07:40) Seizure clonidine Allergy (Verified 08/15/20 07:40) Unknown diphenhydramine [From Benadryl] Allergy (Verified 08/15/20 07:40) Itching latex Allergy (Verified 08/15/20 07:40) Rash lisinopril Allergy (Verified 08/15/20 07:40) Unknown vancomycin Allergy (Verified 08/15/20 07:40) Itching nitroglycerin Adverse Reaction (Mild, Verified 08/15/20 07:40) Headache amlodipine Adverse Reaction (Verified 03/05/17 13:27) Dizziness adverse type reactions. pt. refuse to take hydralazine Adverse Reaction (Verified 08/15/20 07:40) Nausea valsartan Adverse Reaction (Verified 03/05/17 13:29) Dizziness pt. refuse to take. Home Medications Medication Instructions Recorded Confirmed Last Taken Type Losartan [Cozaar] 50 mg PO DAILY 08/15/20 08/15/20 08/14/20 History 50 mg Metoprolol [Lopressor TAB] 25 mg PO DAILY 08/15/20 08/15/20 08/14/20 History 25 NIFEdipine [Nifedipine ER] 30 mg PO DAILY 08/15/20 08/15/20 08/14/20 History 30 mg Active Medications Sodium Chloride (Nacl 0.9% 500 Ml) 500 mls @ 50 mls/hr IV DIRECT CJ Stop: 08/15/20 17:59 Last Admin: 08/15/20 09:30 Dose: 100 mls Documented by: - Brief post op/procedure progress note Date of procedure: 08/15/20 Pre-op diagnosis: ESRD pre-transplant Post-op diagnosis: other (normal coronaries) Procedure: C - see dictated cath report Anesthesia: local Estimated blood loss: none Condition: stable - Disposition Condition at discharge: Good Disposition: DC-01 TO HOME OR SELFCARE - Discharge Diagnoses (1) ESRD (end stage renal disease) on dialysis Status: Chronic (2) HTN (hypertension) Status: Chronic (3) Normal coronary arteries Status: Chronic Short Stay Discharge Plan Diet: low fat, low cholesterol, low salt, renal Wound: open to air, keep clean and dry, per your surgeon's advice Follow up with: AUDREY MCNEIL MD [Primary Care Provider] - 7 Days Forms: CardCath PCI D/C Instructions
--- NOTE | 2020-08-15 12:13 | Electrocardiograph Report ---
[facility] Test Date: 2020-08-15 Test Time: 07:20:25 Pat Name: KEILY ZAPATA Department: Room: Gender: F Strong Nitric Operator: KASI : 1975 Requested By: NII HOWE Order Number: [id number] Reading MD: Nii Howe Measurements Intervals [place] Rate: 81 P: 68 VA: 145 QRS: 27 QRSD: 91 T: 54 QT: 405 QTc: 470 Interpretive Statements Sinus rhythm No previous ECG available for comparison Electronically Signed On 08-15-2020 12:12:45 EDT by Nii Howe
[2020-08-15 12:48] VITALS: BP 173/98
== END 2020-08-15 15:00 | disposition home or self-care (01) ==
LOC: CATHLABREC 06:26
PROVIDERS: ATTEND Internal Medicine
DX: I13.2 Hypertensive heart and chronic kidney disease with heart failure and with stage 5 chronic kidney disease, or end stage renal disease (principal); N18.6 End stage renal disease; I50.9 Heart failure, unspecified; Z88.8 Allergy status to other drugs, medicaments and biological substances; Z91.040 Latex allergy status; Z79.899 Other long term (current) drug therapy; Z87.01 Personal history of pneumonia (recurrent); Z87.440 Personal history of urinary (tract) infections; Z98.890 Other specified postprocedural states; Z82.49 Family history of ischemic heart disease and other diseases of the circulatory system
CPT/HCPCS: 36415; 80048; 81025; 85025; 85610; 85730; 93005; 93458; C1894; J1644; J2250; J3010; J7040; Q9967